=== PATIENT | male | born 1990 | race Caucasian/White ===

== ENCOUNTER 2021-11-16 18:58 | Emergency (ER) | payer MEDICAID, OTHER ==
[~2021-11-16] VITALS: Ht 182.9 cm; Wt 93.0 kg
[2021-11-16] MEDS ORDERED: ONDANSETRON HCL/PF 4 MG/2 ML VIAL ONE (20:04)
[2021-11-16] MEDS ORDERED: PANTOPRAZOLE 40 MG VIAL ONE (20:04)
[2021-11-16] MEDS: ONDANSETRON HCL/PF 4 MG/2 ML VIAL IVP ONE (20:15)
[2021-11-16] MEDS: PANTOPRAZOLE 40 MG VIAL IV ONE (20:15)
[2021-11-16] MEDS: IV NS 0.9% 1,000 ML BAG IV ONE (20:15)
[2021-11-16 20:27] LABS: CALCIUM, SERUM 8.6 mg/dL (8.5-10.1); CREATININE 1.1 mg/dL (0.6-1.3); POTASSIUM 3.8 mmol/L (3.5-5.1)
[2021-11-16 20:34] LABS: BILIRUBIN,DIRECT 0.1 mg/dL (0.0-0.2); BILIRUBIN,TOTAL 0.3 mg/dL (0.2-1.0); TOTAL PROTEIN, SERUM 7.4 g/dL (6.4-8.2)
[2021-11-16 21:09] LABS: BASOPHILS % (AUTO) 0.2 % (0.0-2.0); EOSINOPHILS % (AUTO) 0.5 % (0.0-6.0); HEMATOCRIT 45 % (39-51); HEMOGLOBIN 14.9 g/dL (13.5-17.5); LYMPHOCYTES # (AUTO) 0.6 K/uL (0.8-4.8); LYMPHOCYTES % (AUTO) 5.3 % (20.0-44.0); MEAN CORPUSCULAR HGB CONC 34 g/dl (31.0-36.0); MEAN CORPUSCULAR VOLUME 95 fL (80-96); MONOCYTES # (AUTO) 0.6 K/uL (0.1-1.30); MONOCYTES % (AUTO) 4.9 % (2.0-12.0); NEUTROPHILS # (AUTO) 10.4 K/uL (1.8-8.9); NEUTROPHILS % (AUTO) 89.1 % (43.0-81.0); PLATELET COUNT (AUTO) 267 K/uL (150-450); RED BLOOD CELL COUNT(AUTO) 4.66 MIL/uL (4.5-6.0); WHITE BLOOD COUNT (AUTO) 11.6 K/uL (4.3-11.0)
[2021-11-16] MEDS ORDERED: LORA-259 PO (21:51)
[2021-11-16] MEDS ORDERED: ONDA4TAB5 PO (21:51)
[2021-11-16] MEDS ORDERED: PANT20TA2 PO (21:51)
--- NOTE | 2021-11-16 23:46 | NUR ---
Patient discharged to home in stable condition. Written and verbal after care instructions given. Patient verbalizes understanding of instruction.
[2021-11-16 23:47] VITALS: BP 138/77
== END 2021-11-16 23:47 ==
LOC: ER 19:02
DX: F10.10 Alcohol abuse, uncomplicated; F41.9 Anxiety disorder, unspecified; F32.A Depression, unspecified; Y90.9 Presence of alcohol in blood, level not specified
CPT/HCPCS: 36415; 71045; 80048; 80076; 83690; 85025; 85730; 96361; 96374; 96375; 99284; C9113; J2405; J7030